=== PATIENT | female | born 1950 | race Hispanic/Latino ===

== ENCOUNTER 2023-03-30 10:58 | Emergency (ER) | payer OTHER, MEDICARE ==
[~2023-03-30] VITALS: Ht 157.5 cm; Wt 68.5 kg
[2023-03-30 11:00] VITALS: BP 151/78
== END 2023-03-30 12:46 | disposition left against medical advice (07) ==
LOC: EDH 10:58
DX: R09.81 Nasal congestion (principal); Z53.21 Procedure and treatment not carried out due to patient leaving prior to being seen by health care provider
CPT/HCPCS: 99281

== ENCOUNTER 2023-04-01 11:14 | Emergency (ER) | payer OTHER, MEDICARE ==
[~2023-04-01] VITALS: Ht 157.5 cm; Wt 68.5 kg
[2023-04-01 13:02] LABS: BASOPHILS % (AUTO) 0.5 % (0.0-5.0); EOSINOPHILS % (AUTO) 0.5 % (0.0-8.0); HEMATOCRIT 39.5 % (36-48); LYMPHOCYTES % (AUTO) 23.4 % (21.0-51.0); MEAN CORPUSCULAR HEMOGLOBIN 29.4 pg (27.0-33.0); MEAN CORPUSCULAR HGB CONC 33.9 g/dL (32.0-36.0); MEAN CORPUSCULAR VOLUME 86.6 fL (79-99); MONOCYTES % (AUTO) 5.5 % (3.0-13.0); NEUTROPHILS % (AUTO) 69.8 % (40.0-77.0); PLATELET COUNT (AUTO) 221 K/uL (130-400); RED BLOOD CELL COUNT(AUTO) 4.56 MIL/uL (4.00-5.50); RED CELL DISTRIBUTION WIDTH 13.4 % (11.0-15.5)
[2023-04-01 13:18] LABS: POTASSIUM 3.8 mmol/L (3.5-5.1)
[2023-04-01 13:25] LABS: TOTAL PROTEIN, SERUM 7.4 g/dL (6.0-8.3)
[2023-04-01 13:30] VITALS: BP 128/73
[2023-04-01] MEDS ORDERED: IPRATROPIUM/ALBUTEROL SULFATE 3 ML SOLUTION IH ONE ×2 (13:57→14:00)
[2023-04-01] MEDS ORDERED: BENZONATATE 100 MG CAPSULE PO ONE (14:00)
[2023-04-01] MEDS ORDERED: ALBUHFA IH (14:38)
[2023-04-01] MEDS ORDERED: BENZ-39 PO (14:38)
== END 2023-04-01 15:04 | disposition home or self-care (01) ==
LOC: EDH 11:14
DX: J06.9 Acute upper respiratory infection, unspecified (principal); F41.9 Anxiety disorder, unspecified; M19.90 Unspecified osteoarthritis, unspecified site; E11.9 Type 2 diabetes mellitus without complications; E78.00 Pure hypercholesterolemia, unspecified; I10 Essential (primary) hypertension; K21.9 Gastro-esophageal reflux disease without esophagitis; F32.A Depression, unspecified; Z79.899 Other long term (current) drug therapy; Z20.822 Contact with and (suspected) exposure to COVID-19
CPT/HCPCS: 99285; 71045; 87635; 82550; 84484; 80053; 85025; 87880; 87804 ×2; 83605; 36415; 93005; 94640; C9803

== ENCOUNTER 2023-11-17 14:09 | Emergency (ER) | payer OTHER, MEDICARE ==
[~2023-11-17] VITALS: Ht 162.6 cm; Wt 67.6 kg
[~2023-11-17 14:09] MED LIST: ALBUHFA IH; BENZ-39 PO
[2023-11-17] MEDS: ACETAMINOPHEN 500 MG TABLET PO ONE (14:37)
[2023-11-17 15:41] VITALS: BP 148/71; PULSE 62; RESP 16; O2SAT 100
== END 2023-11-17 15:45 | disposition home or self-care (01) ==
LOC: EDH 14:09
DX: S40.012A Contusion of left shoulder, initial encounter (principal); I10 Essential (primary) hypertension; E11.9 Type 2 diabetes mellitus without complications; E78.00 Pure hypercholesterolemia, unspecified; F41.9 Anxiety disorder, unspecified; F32.A Depression, unspecified; M19.90 Unspecified osteoarthritis, unspecified site; Z79.899 Other long term (current) drug therapy; Z98.890 Other specified postprocedural states; W01.0XXA Fall on same level from slipping, tripping and stumbling without subsequent striking against object, initial encounter; Y93.89 Activity, other specified; Y92.89 Other specified places as the place of occurrence of the external cause; Y99.8 Other external cause status
CPT/HCPCS: 73060